=== PATIENT | male | born 1955 | race Caucasian/White ===

== ENCOUNTER 2017-12-19 15:25 | Emergency (ER) | payer OTHER ==
[~2017-12-19] VITALS: Ht 170.2 cm; Wt 94.3 kg
[2017-12-19 15:57] VITALS: BP 169/104
--- NOTE | 2017-12-19 16:18 | NUR ---
PT WHEELED TO CHAIR E
--- NOTE | 2017-12-19 16:21 | NUR ---
62YO M BIB FRIEND FOR GENERLIZED WEAKNESS X 2DAYS. PT WITH HAS CLEAR, SLIGHT RIGHT SIDE ARM DRIFT, RIGHT SIDED LEG DRIFT, RIGHT SIDED WEAKNESS, SENSATION INTACT . GCS 15, AAOX4, PT STATES FALLING AT HOME 4-5 TIME IN THE LAST 2 DAYS BS 417 HX: DM, HTN, DEPRESSION MEDS: ATENOLOL, ALPRAZOLAM, ASA
--- NOTE | 2017-12-19 16:35 | NUR ---
PT WHEELED TO RESTROOM IN NO APPEARENT DISTRESS.
--- NOTE | 2017-12-19 16:38 | NUR ---
PT TAKEN IN WHEELCHAIR TO ER BED 07
[2017-12-19] MEDS ORDERED: ONDANSETRON 4 MG/2 ML VIAL IVP ONE (16:50)
[2017-12-19] MEDS ORDERED: MECLIZINE 25 MG TAB PO ONE (16:50)
[2017-12-19] MEDS ORDERED: NACL 0.9% 1,000 ML IV ONE (16:50)
--- NOTE | 2017-12-19 16:53 | NUR ---
Patient being evaluated by physician at bedside.
--- NOTE | 2017-12-19 17:10 | NUR ---
lab at bedside
[2017-12-19 17:16] LABS: BASOPHILS # (AUTO) 0.1 K/uL (0.00-0.22); BASOPHILS % (AUTO) 0.5 % (0.0-2.0); EOSINOPHILS # (AUTO) 0.1 K/uL (0-0.4); HEMOGLOBIN 16.6 g/dL (12.0-18.0); LYMPHOCYTES # (AUTO) 1.9 K/uL (2.0-11.5); LYMPHOCYTES % (AUTO) 17.3 % (20.5-51.1); MEAN CORPUSCULAR HEMOGLOBIN 29 pg (27-31); MEAN CORPUSCULAR HGB CONC 35 g/dL (33-37); MEAN CORPUSCULAR VOLUME 85.3 fL (80-94); MONOCYTES # (AUTO) 0.7 K/uL (0.8-1.0); MONOCYTES % (AUTO) 6.5 % (1.7-9.3); NEUTROPHILS # (AUTO) 8.2 K/uL (1.8-7.7); NEUTROPHILS % (AUTO) 74.7 % (42.2-75.2); PLATELET COUNT (AUTO) 286 K/uL (140-450); RED BLOOD CELL COUNT(AUTO) 5.63 MIL/uL (4.20-6.10); RED CELL DISTRIBUTION WIDTH 13.6 % (11.6-13.7); WHITE BLOOD COUNT (AUTO) 10.9 K/uL (4.8-10.8)
--- NOTE | 2017-12-19 17:21 | NUR ---
ultra sound at bedside
[2017-12-19 17:33] LABS: PROTHROMBIN TIME 9.9 secs (10.8-13.4)
[2017-12-19 17:48] LABS: CHLORIDE 98 mmol/L (98-107); POTASSIUM 3.6 mmol/L (3.5-5.1); SODIUM SERUM 137 mmol/L (136-145)
[2017-12-19 17:49] LABS: ALBUMIN 4.2 g/dL (3.4-5.0); AMYLASE 31 U/L (25-115); ANION GAP 15.1 (8-16); ASPARTATE AMINOTRANSFERASE 28 U/L (15-37); CARBON DIOXIDE 27.5 mmol/L (21-32); CREATININE 1.1 mg/dL (0.7-1.3); GFR ARICAN-AMERICAN 88 mL/min (>90); LIPASE 216 U/L (73-393); UREA NITROGEN, BLOOD 15 mg/dL (7-18)
[2017-12-19 17:53] LABS: GLUCOSE 418 mg/dL (74-106)
[2017-12-19] MEDS ORDERED: INSULIN REGULAR, HUMAN 100 UNIT/ML VIAL SUBQ ONE (18:00)
[2017-12-19 18:38] LABS: APPEARANCE,URINE CLEAR (CLEAR); BILIRUBIN,URINE NEGATIVE (NEGATIVE); BLOOD, URINE NEGATIVE (NEGATIVE); COLOR,URINE YELLOW (YELLOW); NITRITE, URINE NEGATIVE (NEGATIVE); UGLUCOSE NEGATIVE (NEGATIVE)
[2017-12-19 18:39] LABS: LEUKOCYTE ESTERASE ,URINE NEGATIVE (NEGATIVE)
--- NOTE | 2017-12-19 19:10 | NUR ---
REPORT RECEIVED FROM ANJUM LANGSTON
--- NOTE | 2017-12-19 20:25 | NUR ---
Patient to be transferred to [facility]. Is being transferred due to CONTINUITY OF CARE. Receiving facility has accepting physician and available space. ER physician has signed transfer form. Patient or responsible constitution party has agreed to transfer and signed form. Patient belongings inventoried and will be sent with patient. Copy of nursing notes, lab reports, EKG, Physicians Orders and X-rays to be sent with patient. Report called to ANJUM SMITH at receiving facility. [facility] ambulance service has been called for transfer. ETA is 45 MINS.
--- NOTE | 2017-12-19 21:10 | NUR ---
[facility], REPORT GIVEN.
[2017-12-19 21:23] VITALS: BP 149/95
== END 2017-12-19 21:10 | disposition short-term general hospital (02) ==
LOC: MED 15:25
DX: R26.0 Ataxic gait (principal); E11.65 Type 2 diabetes mellitus with hyperglycemia; R53.1 Weakness; I10 Essential (primary) hypertension; F32.9 Major depressive disorder, single episode, unspecified; E66.9 Obesity, unspecified; Z68.32 Body mass index [BMI] 32.0-32.9, adult; Z86.73 Personal history of transient ischemic attack (TIA), and cerebral infarction without residual deficits
CPT/HCPCS: 36415; 70450; 71045; 80053; 81003; 82150; 82550; 82553; 82948; 83690; 84484; 85025; 85610; 85730; 93880; 96361; 96372; 96374; 99285; J1815; J2405; J7030; J8597; Q0092

== ENCOUNTER 2018-01-28 14:39 | Inpatient (IN) | payer OTHER ==
[~2018-01-28] VITALS: Ht 172.7 cm; Wt 85.3 kg
[2018-01-28 14:42] VITALS: BP 134/86
--- NOTE | 2018-01-28 14:42 | NUR ---
TO BED # 12 WITH WALKER, REPORT GIVEN TO BONNY VALERO
--- NOTE | 2018-01-28 14:50 | NUR ---
PT IS A 62 Y/O MALE WHO PRESENTS TO THE ED C/O COUGH. PT STATES THAT IT STARTED TODAY. PT REPORTS 5/10 ACHING CHEST PAIN AND LOW BACK X1 WEEK. PT DENIES CP, SOB, REPORTS VOMITING DENIES NAUSEA/DIARRHEA. PT AWAKE AND ALERT, RR EVEN/UNLABORED. PT REPOSITIONED FOR COMFORT, BED IN LOWEST POSITION. ER MD DR. SAENZ NOTIFIED. WILL CONTINUE TO MONITOR.
[2018-01-28] MEDS ORDERED: IPRATROPIUM 0.02% 0.5 MG/2.5 ML NEBU INH ONE (15:50)
[2018-01-28] MEDS ORDERED: methylPREDNISolone SS 125 MG/2 ML VIAL IVP ONE (15:50)
[2018-01-28] MEDS ORDERED: ALBUTEROL 0.083% 2.5 MG/3 ML NEBU INH ONE (15:50)
[2018-01-28 16:20] LABS: BASOPHILS # (AUTO) 0.1 K/uL (0.00-0.22); EOSINOPHILS # (AUTO) 0.3 K/uL (0-0.4); EOSINOPHILS % (AUTO) 3.2 % (0.0-4.0); HEMATOCRIT 40.8 % (36-52); HEMOGLOBIN 13.9 g/dL (12.0-18.0); LYMPHOCYTES # (AUTO) 2.5 K/uL (2.0-11.5); LYMPHOCYTES % (AUTO) 26.2 % (20.5-51.1); MEAN CORPUSCULAR HEMOGLOBIN 29 pg (27-31); MEAN CORPUSCULAR HGB CONC 34 g/dL (33-37); MEAN CORPUSCULAR VOLUME 84.7 fL (80-94); MONOCYTES # (AUTO) 0.6 K/uL (0.8-1.0); MONOCYTES % (AUTO) 6.6 % (1.7-9.3); PLATELET COUNT (AUTO) 298 K/uL (140-450); RED BLOOD CELL COUNT(AUTO) 4.81 MIL/uL (4.20-6.10); RED CELL DISTRIBUTION WIDTH 13.6 % (11.6-13.7); WHITE BLOOD COUNT (AUTO) 9.6 K/uL (4.8-10.8)
[2018-01-28 16:47] LABS: ANION GAP 10.6 (8-16); CARBON DIOXIDE 33.2 mmol/L (21-32); POTASSIUM 3.8 mmol/L (3.5-5.1)
[2018-01-28 16:48] LABS: ACETONE, SERUM NEGATIVE (NEGATIVE)
[2018-01-28 16:51] LABS: TOTAL BILIRUBIN 0.6 mg/dL (0.0-1.0)
[2018-01-28 16:52] LABS: ALBUMIN 3.3 g/dL (3.4-5.0); MAGNESIUM 1.6 mg/dL (1.8-2.4)
[2018-01-28] MEDS ORDERED: INSU100S22 SC (17:38)
[2018-01-28] MEDS ORDERED: HYDR200T5 PO (17:38)
[2018-01-28] MEDS ORDERED: METF1000 PO (17:41)
[2018-01-28] MEDS ORDERED: SITA100T8 PO (17:41)
[2018-01-28] MEDS ORDERED: ATOR20TA PO (17:41)
[2018-01-28] MEDS ORDERED: ALBU0.0912 IH (17:41)
[2018-01-28] MEDS ORDERED: ATEN100T6 PO (17:41)
[2018-01-28] MEDS: NACL 0.9% 1,000 ML IV SCH (18:57)
[2018-01-28] MEDS ORDERED: ONDANSETRON 4 MG/2 ML VIAL IVP PRN (19:00)
--- NOTE | 2018-01-28 19:01 | NUR ---
Patient will be admitted to care of dr. mason. Admited to [facility]. Will go to [id number]. Belongings list completed. Report to katie tam.
--- NOTE | 2018-01-28 19:10 | NUR ---
ADMITTED PT FROM ER VIA JOYCE. AAOX3. PT AMBULATES WITH WALKER. NO C/O PAIN OR SOB. ON ROOM AIR. IV TO LEFT AC #20G, PATENT AND INTACT. SKIN INTACT. ORIENTED PT TO ROOM. DISCUSSED PLAN OF CARE, PT VERBALIZED UNDERSTANDING. SAFETY PRECAUTION IN PLACE. CALL LIGHT WITHIN REACH.
[2018-01-28 20:00] VITALS: BP 144/79
[2018-01-28] MEDS ORDERED: CLOPIDOGREL 75 MG TAB PO SCH (20:00)
[2018-01-28] MEDS ORDERED: ATENOLOL 25 MG TAB PO SCH (20:00)
--- NOTE | 2018-01-28 21:30 | NUR ---
PT LYING IN BED, AWAKE. DENIES PAIN. NO RESP DISTRESS AND COUGH NOTED. NEEDS MET AT THIS TIME. CALL LIGHT WITHIN REACH.
--- NOTE | 2018-01-28 23:20 | NUR ---
PT IN BED, AWAKE. NO C/O PAIN, SOB, DIZZINESS, WEAKNESS OR NUMBNESS. PT KEPT COMFORTABLE. CALL LIGHT WITHIN REACH.
[2018-01-29] VITALS: BP_SYST 126; BP_DIAS 73; BP_DIAS 87
--- NOTE | 2018-01-29 01:45 | NUR ---
PT SLEEPING BUT EASILY AROUSABLE. NO S/S OF PAIN. NO COUGH OR CONGESTION NOTED. NO S/S OF SOB.
[2018-01-29 04:00] VITALS: BP 142/70
--- NOTE | 2018-01-29 04:00 | NUR ---
PT SLEEPING. NO S/S ACUTE DISTRESS NOTED. SAFETY PRECAUTION IN PLACE. CALL LIGHT WITHIN REACH.
--- NOTE | 2018-01-29 07:15 | NUR ---
ENDORSED PT TO DAY SHIFT NURSE. PT IN STABLE CONDITION.
--- NOTE | 2018-01-29 07:20 | NUR ---
RECEIVED PT FROM .NET ARCHITECT NURSE. PT SLEEPING, EASILY ROUSED, OX2. PT KNOW HE IS IN THE HOSPITAL BUT NOT SURE ABOUT THE NAME. CC: COUGH OVER 1WK. PT AMBULATES WITH WALKER WHICH IS IN THE ROOM. DENIES PAIN OR SOB. NO S/S OF DISTRESS ON ROOM AIR. IV TO LEFT AC #20G, ASYMPTOMATIC, PATENT AND INTACT, RUNNING NS AT 75ML/HR. ORIENTED PT TO ROOM. DISCUSSED PLAN OF CARE, PT VERBALIZED UNDERSTANDING. SAFETY PRECAUTION IN PLACE. CALL LIGHT WITHIN REACH.
[2018-01-29 08:00] VITALS: BP 140/75
[2018-01-29] MEDS ORDERED: metFORMIN 500 MG TAB PO SCH (08:00)
[2018-01-29 08:14] LABS: BASOPHILS % (AUTO) 0.1 % (0.0-2.0); EOSINOPHILS % (AUTO) 0.1 % (0.0-4.0); HEMATOCRIT 38.9 % (36-52); HEMOGLOBIN 13.4 g/dL (12.0-18.0); MEAN CORPUSCULAR HEMOGLOBIN 29 pg (27-31); MEAN CORPUSCULAR HGB CONC 35 g/dL (33-37); MEAN CORPUSCULAR VOLUME 84.9 fL (80-94); MONOCYTES # (AUTO) 0.2 K/uL (0.8-1.0); MONOCYTES % (AUTO) 2.4 % (1.7-9.3); NEUTROPHILS # (AUTO) 8.5 K/uL (1.8-7.7); NEUTROPHILS % (AUTO) 87.4 % (42.2-75.2); PLATELET COUNT (AUTO) 298 K/uL (140-450); RED BLOOD CELL COUNT(AUTO) 4.58 MIL/uL (4.20-6.10); RED CELL DISTRIBUTION WIDTH 13.6 % (11.6-13.7); WHITE BLOOD COUNT (AUTO) 9.7 K/uL (4.8-10.8)
--- NOTE | 2018-01-29 08:20 | NUR ---
INITIAL ASSESSMENT DONE. VITALS TAKEN. NO EDEMA NOTED. BREATHING SOUNDS CLEAR, NON PRODUCTIVE COUGH
[2018-01-29 08:47] LABS: ANION GAP 14.6 (8-16); CARBON DIOXIDE 28.5 mmol/L (21-32); POTASSIUM 4.1 mmol/L (3.5-5.1)
[2018-01-29 08:52] LABS: TOTAL BILIRUBIN 0.6 mg/dL (0.0-1.0)
[2018-01-29 08:53] LABS: MAGNESIUM 1.5 mg/dL (1.8-2.4); PHOSPHORUS 4.8 mg/dL (2.5-4.9)
[2018-01-29] MEDS: ATORVASTATIN 20 MG TAB PO SCH (09:13)
[2018-01-29] MEDS: ENOXAPARIN 40 MG/0.4 ML SYR SUBQ SCH (09:30)
--- NOTE | 2018-01-29 09:48 | NUR ---
PATIENT HAS BEEN SCREENED AND CATEGORIZED MODERATE NUTRITION RISK. PATIENT WILL BE SEEN WITHIN 3-5 DAYS OF ADMISSION. 01/31/18-02/02/[address]
[2018-01-29] MEDS: NACL 0.9% 1,000 ML IV SCH (11:05)
--- NOTE | 2018-01-29 11:55 | NUR ---
SPOKE WITH DR COWAN OVER THE PHONE, REPORTED BLOOD SUGAR 408, HX DM, [facility] 20[facility]ITS BEDTIME AT HOME , ORDERS RECEIVED.
[2018-01-29 12:00] VITALS: BP 140/77
[2018-01-29] MEDS: INSULIN LISPRO SLIDING SCALE 100 UNITS/ML VIAL SUBQ PRN ×4 (12:10→20:45)
[2018-01-29] MEDS ORDERED: DEXTROSE 50% 50 ML SYR IVP PRN (12:50)
--- NOTE | 2018-01-29 13:48 | NUR ---
DR COWAN WANTS THE LANTUS 20UNITS TO BE GIVEN NOW.
[2018-01-29] MEDS: INSULIN LANTUS 100 UNITS/ML 10 ML VIAL SUBQ SCH (13:51)
[2018-01-29] MEDS ORDERED: ALBUTEROL 0.083% 2.5 MG/3 ML NEBU INH PRN (13:55)
[2018-01-29 16:00] VITALS: BP 129/81
[2018-01-29] MEDS: BLOOD GLUCOSE MONITORING 1 DEV DEV FS SCH ×2 (16:45→20:42)
[2018-01-29] MEDS ORDERED: ATORVASTATIN 20 MG TAB PO SCH (17:00)
[2018-01-29] MEDS ORDERED: INSULIN GLARGINE HUM REC ANLOG U SCH (17:00)
[2018-01-29] MEDS ORDERED: INSULIN DETEMIR 100 UNITS/ML 10 ML VIAL SUBQ SCH (17:00)
[2018-01-29] MEDS: ATENOLOL 50 MG TAB PO SCH (17:22)
[2018-01-29] MEDS: metFORMIN 500 MG TAB PO SCH (17:22)
--- NOTE | 2018-01-29 19:20 | NUR ---
PT ENDORSED TO PROCUREMENT BUYER NURSE CECE PT IN STABLE CONDITION.
--- NOTE | 2018-01-29 19:21 | NUR ---
RECEIVED PT IN STABLE CONDITION FROM AM NURSE. AWAKE,ALERT AND ORIENTED X3. WITH PERIODS OF FORGETFULNESS. ON TELE MONITOR, HAS VISITOR , A FRIEND AT BEDSIDE. PT IS ON BED REST BUR CAN BE UP WITH ASSISTANCE. HAS HL ON THE LT AC G#20. CLEAR AND PATENT. BED ON LOWEST POSITION, FREQUENT ROUNDS NEEDED. CALL LIGHT PLACED WITHIN EASY REACH. WILL CONTINUE TO MONITOR.
[2018-01-29 20:25] VITALS: BP 146/80
--- NOTE | 2018-01-29 20:45 | NUR ---
BLOOD SUGAR WAS 288. INSULIN COVERAGE GIVEN SUBQ. PROVIDED WITH HS SNACK. WILL CONTINUE TO MONITOR.
[2018-01-29] MEDS ORDERED: ALBUTEROL HFA MDI 90 MCG/ACTUATION 8 GM INH SCH (21:00)
--- NOTE | 2018-01-29 22:00 | NUR ---
PT ASLEEP. NO S/S OF ANY DISCOMFORT NOR DISTRESS NOTED. WILL CONTINUE TO MONITOR.
[2018-01-30 00:50] VITALS: BP 138/86
--- NOTE | 2018-01-30 02:15 | NUR ---
PT GET OUT OF THE ROOM . AMBULATED ,UNSTEADY. ASKING FOR THE BATHROOM. ASSISTED TO THE BATHROOM. VERY ANGRY THAT HE HAS BEEN FOLLOWED BY NURSES. .REVIEWED AND PT IS FORGETFUL SINCE HE HAD CVA. RT SIDE WEAKNESS AND REALLY VERY UNSTEADY. BED CHANGED WITH BED ALARM ON . BED ON LOWEST POSITION, NEW URINAL PROVIDED AND INSTRUCTED TO USE CALL LIGHT WHICH IS WITHIN REACH. HIGH RISK FOR FALL SIGN ,YELLOW GOWN,ARMBAND AND SOCKS PROVIDED. WILL CONTINUE TO MONITOR.
--- NOTE | 2018-01-30 03:30 | NUR ---
SLEEPING WELL AT THIS TIME. NO S/S OF ANY DISCOMFORT NOR PAIN NOTED.
--- NOTE | 2018-01-30 04:05 | NUR ---
VITAL SIGNS TAKEN. STABLE. NO C/O ANY DISCOMFORT NOR PAIN NOTED.
[2018-01-30 04:07] VITALS: BP 148/80
--- NOTE | 2018-01-30 04:16 | NUR ---
IV HAS BEEN BEEPING. CHECKED THE IV SITE ,TUBING WAS KINKED. KERLIX WRAP REMOVED AND REPLACED TO A NEW ONE. IV INFUSING WELL. Addendum: 01/30/18 at 0419 by Maine Grady RN CANCEL ABOVE NOTES. WRONG PT.
[2018-01-30] MEDS: BLOOD GLUCOSE MONITORING 1 DEV DEV FS SCH ×4 (06:06→19:49)
[2018-01-30] MEDS: INSULIN LISPRO SLIDING SCALE 100 UNITS/ML VIAL SUBQ PRN ×4 (06:11→20:42)
--- NOTE | 2018-01-30 06:11 | NUR ---
BLOOD SUGAR THIS AM 275. INSULIN COVERAGE GIVEN SUBQ.
--- NOTE | 2018-01-30 07:25 | NUR ---
ENDORSED PT IN STABLE CONDITION TO AM NURSE.
--- NOTE | 2018-01-30 07:30 | NUR ---
RECEIVED PT FROM SHEETER WAXER OPERATOR NURSE AT BEDSIDE. PT SLEEPING, EASILY ROUSED, OX2. PT THOUGHT HE IS IN [facility], REORIENTED PT. CC: COUGH OVER 1WK. PT AMBULATES WITH WALKER WHICH IS IN THE ROOM. DENIES PAIN. NO S/S OF DISTRESS ON ROOM AIR. IV TO LEFT AC #20G, ASYMPTOMATIC, PATENT AND INTACT, SL. DISCUSSED PLAN OF CARE, PT VERBALIZED UNDERSTANDING. SAFETY PRECAUTION IN PLACE. CALL LIGHT WITHIN REACH.
[2018-01-30 08:00] VITALS: BP 144/83
--- NOTE | 2018-01-30 08:05 | NUR ---
VITALS TAKEN. PT IS COOPERATIVE.
[2018-01-30] MEDS: metFORMIN 500 MG TAB PO SCH ×2 (09:20→17:02)
[2018-01-30] MEDS: HYDROXYCHLOROQUINE 200 MG TAB PO SCH (09:21)
[2018-01-30] MEDS: ATORVASTATIN 20 MG TAB PO SCH (09:21)
[2018-01-30] MEDS: ENOXAPARIN 40 MG/0.4 ML SYR SUBQ SCH (09:28)
[2018-01-30 12:00] VITALS: BP 126/95
--- NOTE | 2018-01-30 12:17 | NUR ---
INSULIN COVERAGE GIVEN. PT STARTED EATING LUNCH INDEPENDENTLY. NO S/S OF DISTRESS.
[2018-01-30] MEDS ORDERED: MAG SULF 2000 MG/WATER PREMIX 50 ML IV SCH (14:30)
[2018-01-30] MEDS: MAGNESIUM SULFATE 1GM in DEXTROSE 5% 100 ML PREMIX IV SCH ×2 (15:05→16:25)
--- NOTE | 2018-01-30 15:35 | NUR ---
PT GETTING UP TO PEE, BUT WAS LATE AND URINATED ON HIS BED. CHANGED PT'S GOWN AND ALL LINENS. PT WAS CLEANED, AND UNDERWEAR CHANGED. PUT PT BACK TO BED. PT IS RESTING NOW.
[2018-01-30 16:00] VITALS: BP 156/91
[2018-01-30] MEDS: ATENOLOL 50 MG TAB PO SCH (17:02)
[2018-01-30] MEDS: INSULIN LANTUS 100 UNITS/ML 10 ML VIAL SUBQ SCH (17:09)
--- NOTE | 2018-01-30 19:30 | NUR ---
PT ENDORSED TO TUYERE FITTER NURSE, PT IN STABLE CONDITION.
--- NOTE | 2018-01-30 19:30 | NUR ---
RECEIVED REPORT FROM DAY SHIFT NURSE, ROMULO, AT PT BEDSIDE. PT IN STABLE CONDITION. PT IS AAOX3. PT IS ON RA WITH RESPIRATIONS EVEN AND UNLABORED. IV ACCESS IN L AC 20G WITH SALINE LOCKED. IV IS PATENT AND INTACT. PT HAS SMALL SKIN TEAR TO R KNEE. NO C/O PAIN AT THIS TIME. BED IS LOCKED, LOW POSITION WITH SIDE RAILS UP X2. CALL LIGHT IS WITHIN REACH. BOARD UPDATED. WILL CONTINUE TO MONITOR PT.
[2018-01-30 20:00] VITALS: BP 132/85
--- NOTE | 2018-01-30 20:43 | NUR ---
INSULIN COVERAGE GIVEN FOR BS 203. PT TOLERATED WELL. ALL OTHER NEEDS ARE MET AT THIS TIME. WILL CONTINUE TO MONITOR.
--- NOTE | 2018-01-30 21:07 | NUR ---
RECEIVED PATIENT ON ROOM AIR, O2 SAT 96%. PATIENT DENIES SOB. NO RESPIRATORY DISTRESS NOTED AT THIS TIME. NO HHN GIVEN, TREATMENT NOT INDICATED AT THIS TIME. WILL CONTINUE TO MONITOR.
--- NOTE | 2018-01-30 23:00 | NUR ---
PT ASLEEP IN BED. NO SIGNS OR SYMPTOMS OF DISTRESS. WILL CONTINUE TO MONITOR.
[2018-01-31] VITALS: BP 150/86
--- NOTE | 2018-01-31 01:03 | NUR ---
PT ASLEEP IN BED. NO S/SX OF DISTRESS. WILL CONTINUE TO MONITOR.
[2018-01-31 02:09] VITALS: BP 141/72
--- NOTE | 2018-01-31 03:20 | NUR ---
NO CHANGE IN CONDITION. PT ASLEEP IN BED. NO S/SX OF DISTRESS. WILL CONTINUE TO MONITOR.
[2018-01-31 04:00] VITALS: BP 140/80
[2018-01-31] MEDS: BLOOD GLUCOSE MONITORING 1 DEV DEV FS SCH ×3 (05:50→16:30)
[2018-01-31] MEDS: INSULIN LISPRO SLIDING SCALE 100 UNITS/ML VIAL SUBQ PRN ×2 (05:52→11:54)
--- NOTE | 2018-01-31 05:53 | NUR ---
INSULIN COVERAGE GIVEN FOR BS 182. PT TOLERATED WELL. UTILITY DIVISION PROJECT MANAGER NOW AT BEDSIDE. WILL CONTINUE TO MONITOR PT.
[2018-01-31 06:33] LABS: BASOPHILS # (AUTO) 0.1 K/uL (0.00-0.22); BASOPHILS % (AUTO) 0.4 % (0.0-2.0); EOSINOPHILS # (AUTO) 0.3 K/uL (0-0.4); EOSINOPHILS % (AUTO) 2.6 % (0.0-4.0); HEMOGLOBIN 12.3 g/dL (12.0-18.0); LYMPHOCYTES # (AUTO) 3.4 K/uL (2.0-11.5); LYMPHOCYTES % (AUTO) 28.9 % (20.5-51.1); MEAN CORPUSCULAR HEMOGLOBIN 29 pg (27-31); MEAN CORPUSCULAR HGB CONC 34 g/dL (33-37); MEAN CORPUSCULAR VOLUME 84.4 fL (80-94); MONOCYTES # (AUTO) 0.8 K/uL (0.8-1.0); MONOCYTES % (AUTO) 7.1 % (1.7-9.3); NEUTROPHILS # (AUTO) 7.3 K/uL (1.8-7.7); PLATELET COUNT (AUTO) 323 K/uL (140-450); RED BLOOD CELL COUNT(AUTO) 4.26 MIL/uL (4.20-6.10); RED CELL DISTRIBUTION WIDTH 13.1 % (11.6-13.7); WHITE BLOOD COUNT (AUTO) 11.9 K/uL (4.8-10.8)
--- NOTE | 2018-01-31 07:15 | NUR ---
OBTAINED BEDSIDE REPORT FROM CONSERVATION SCIENCE OFFICER NURSE. PT IS ASLEEP AT THIS TIME, NO S/S OF DISTRESS OR SOB NOTED. PT IS ON ROOM AIR. SKIN IS INTACT, EXCEPT FOR AN OLD SKIN TEAR ON HIS R KNEE FROM FALL AT HOME. IV SITE NOTED ON L AC, 20 GAUGE, SALINE LOCKED. PT IS ON A CARDIAC DIET. NO KNOWN ALLERGIES. FALL PRECAUTIONS ARE IN PLACE, CALL LIGHT WITHIN REACH. WILL CONTINUE TO MONITOR.
[2018-01-31 07:17] LABS: ALBUMIN 2.8 g/dL (3.4-5.0); ANION GAP 11.1 (8-16); CARBON DIOXIDE 29.4 mmol/L (21-32); CREATININE 0.9 mg/dL (0.7-1.3); POTASSIUM 3.5 mmol/L (3.5-5.1); TOTAL BILIRUBIN 0.5 mg/dL (0.0-1.0)
--- NOTE | 2018-01-31 07:18 | NUR ---
ENDORSED PT TO DAY SHIFT NURSE FOR CONTINUITY OF CARE. PT IN STABLE CONDITION.
[2018-01-31 08:00] VITALS: BP 130/85
[2018-01-31] MEDS: ATORVASTATIN 20 MG TAB PO SCH (08:47)
[2018-01-31] MEDS: metFORMIN 500 MG TAB PO SCH ×2 (08:48→17:00)
[2018-01-31] MEDS: HYDROXYCHLOROQUINE 200 MG TAB PO SCH (08:48)
[2018-01-31] MEDS: ENOXAPARIN 40 MG/0.4 ML SYR SUBQ SCH (08:49)
--- NOTE | 2018-01-31 09:30 | NUR ---
AM MEDICINE ADMINISTERED. PT EATING BREAKFAST AT THIS TIME. NO S/S OF DISTRESS, C/O PAIN OR SOB. WILL CONTINUE TO MONITOR.
--- NOTE | 2018-01-31 11:45 | NUR ---
PT WALKING WITH PHYSICAL THERAPY. PER THERAPIST, PT IS A LITTLE UNSTABLE STILL. WALKED ABOUT 40-45 FEET.
[2018-01-31 12:00] VITALS: BP 147/88
--- NOTE | 2018-01-31 14:23 | NUR ---
CM NOTE FAXED ORDER FOR SNF AND PT EVAL TO [facility] [phone] AND LEFT VM TO [facility] PH# [phone] TO INFORM HER. NO CALL BACK AT THIS TIME. DEXTER SIERRA.
--- NOTE | 2018-01-31 15:19 | NUR ---
CM NOTE PER [facility] MARCELLE MCGRATH PH# [phone], FOR THE ACCEPTING SNF AUTH# [id number] AND FOR [facility] AUTH# [id number]. DEXTER SIERRA.
[2018-01-31 16:00] VITALS: BP 153/86
--- NOTE | 2018-01-31 16:35 | NUR ---
Transition Coach Note: I faxed inquiry to [facility]bin Cam[facility] (contracted with [facility]). Per Trish from [facility] , patient has been accepted and may go to room 102B today anytime, accepting , Charge Nurse Dioni garcia aware. I provided Trish with snf authorization from [facility] [id number]
[2018-01-31] MEDS: INSULIN LANTUS 100 UNITS/ML 10 ML VIAL SUBQ SCH (17:00)
[2018-01-31] MEDS: ATENOLOL 50 MG TAB PO SCH (17:00)
--- NOTE | 2018-01-31 17:50 | NUR ---
SPOKE WITH MATEO VALERO AT [facility] TO GIVE REPORT ON PT TRANSFER.
--- NOTE | 2018-01-31 18:10 | NUR ---
DISCHARGE INSTRUCTIONS GIVEN, AND SIGNATURES OBTAINED. PT VERBALIZED UNDERSTANDING OF THE NEED FOR TRANSFER AND THE DISCHARGE INSTRUCTIONS.
--- NOTE | 2018-01-31 19:10 | NUR ---
PT ENDORSED TO HOLISTIC PULSER NURSE. PT IS IN STABLE CONDITION, AWAITING TRANSPORT.
--- NOTE | 2018-01-31 19:43 | NUR ---
RECEIVED FROM AM RN . PT. SITTING ON SIDE OF BED AND WAITING FOR [facility] TO PICK HIM UP. ABLE TO VERBALIZE NEEDS WELL. NO SOB. ALL DISCHARGE PAPER WORKS SIGNED AND REPORT GIVEN TO RN IN FACILITY WHERE HE IS BEING TRANSFERRED.
--- NOTE | 2018-01-31 20:09 | NUR ---
PT. TRANSFERRED TO ANOTHER FACILITY AND PICKED UP BY [facility] ALERT AND AWAKE. ABLE TO VERBALIZE WELL IN SNGLISH. ALL BELONGINGS WITH PT. NOTHING LEFT BEHIND. CHARGE NURSE AWARE.
== END 2018-01-31 19:55 | DRG 861 ==
LOC: MED 14:39 → MTU 18:35
PROVIDERS: ADMIT Hospitalist; ATTEND Hospitalist
DX: R53.1 Weakness (principal); E11.9 Type 2 diabetes mellitus without complications; I10 Essential (primary) hypertension; J44.9 Chronic obstructive pulmonary disease, unspecified; E66.9 Obesity, unspecified; G89.29 Other chronic pain; M54.5 Low back pain; Z91.81 History of falling; Z86.73 Personal history of transient ischemic attack (TIA), and cerebral infarction without residual deficits; Z68.28 Body mass index [BMI] 28.0-28.9, adult; Z87.891 Personal history of nicotine dependence; Z79.899 Other long term (current) drug therapy; Z79.4 Long term (current) use of insulin
CPT/HCPCS: 36415; 70450; 71045; 80053; 82009; 82948; 83735; 83880; 84100; 84484; 85025; 85379; 85610; 85730; 87081; 87804; 93005; 94640; 96372; 97116; 99285; J1650; J1815; J2930; J7030; J7613; J7644; Q0092